=== PATIENT | female | born 1985 | race American Indian/Alaskan Native ===

== ENCOUNTER 2019-03-17 17:03 | Emergency (ER) | payer SELFPAY ==
--- NOTE | 2019-03-17 20:11 | XRay Report ---
RIGHT ANKLE 3 VIEWS INDICATION / CLINICAL INFORMATION: fall with pain. COMPARISON: None available. FINDINGS: No fracture, dislocation or soft tissue swelling is seen within the right ankle. The ankle mortise ap pears intact. Signer Name: Zhang Moreno MD Signed: 03/17/2019 8:07 PM Workstation Name: [id number]
--- NOTE | 2019-03-17 20:12 | XRay Report ---
RIGHT KNEE 3 VIEWS INDICATION / CLINICAL INFORMATION: pain and fall. COMPARISON: None available. FINDINGS: No fracture, dislocation or right knee effusion is present. The joint spaces are well preserved on th sherman nonweightbearing views. Signer Name: Zhang Moreno MD Signed: 03/17/2019 8:07 PM Workstation Name: [id number]
--- NOTE | 2019-03-17 21:53 | Emergency Department Report ---
ED Lower Extremity HPI - General Chief Complaint: Extremity Injury, Lower Stated Complaint: RT LEG/LFT ANKLE PAIN Time Seen by Provider: 03/17/19 21:18 Source: patient Mode of arrival: Ambulatory Limitations: No Limitations - History of Present Illness Initial Comments: 33-year-old female presents to ED with right ankle pain. Patient states she twisted her ankle. States when she ambulates, pain radiates from the right ankle up the lateral side of her right lower leg. MD Complaint: ankle injury -: days(s) (1) Injury: Ankle: Right Severity: moderate Improves With: immobilization Worsens With: weight bearing, palpation Context: other (twisted) Associated Symptoms: able to partially bear weight. denies: numbness, tingling - Related Data Previous Rx's Medication Instructions Recorded Last Taken Type Naproxen [Naprosyn] 500 mg PO BID #20 tablet 03/17/19 Unknown Rx Allergies Allergy/AdvReac Type Severity Reaction Status Date / Time No Known Allergies Allergy Verified 03/17/19 18:32 ED Review of Systems ROS: Stated complaint: RT LEG/LFT ANKLE PAIN Other details as noted in HPI Comment: All other systems reviewed and negative Musculoskeletal: as per HPI Neurological: denies: weakness, numbness, paresthesias ED Past Medical Hx - Past Medical History Previous Medical History?: No - Surgical History Past Surgical History?: No - Social History Smoking Status: Current Every Day Smoker Substance Use Type: Alcohol - Medications Home Medications: Home Medications Medication Instructions Recorded Confirmed Last Taken Type Naproxen [Naprosyn] 500 mg PO BID #20 tablet 03/17/19 Unknown Rx ED Physical Exam - General Limitations: No Limitations General appearance: alert, in no apparent distress - Head Head exam: Present: atraumatic, normocephalic - Eye Eye exam: Present: normal appearance - ENT ENT exam: Present: mucous membranes moist - Neck Neck exam: Present: normal inspection - Respiratory Respiratory exam: Present: normal lung sounds bilaterally. Absent: respiratory distress - Cardiovascular Cardiovascular Exam: Present: regular rate, normal rhythm - GI/Abdominal GI/Abdominal exam: Absent: distended - Extremities Exam Extremities exam: Present: other (tenderness to lateral right ankle w/ mild swelling present; no deformity present) - Neurological Exam Neurological exam: Present: alert, oriented X3. Absent: motor sensory deficit - Psychiatric Psychiatric exam: Present: normal affect, normal mood - Skin Skin exam: Present: warm, dry, intact, normal color. Absent: rash ED Course Vital Signs 03/17/19 03/17/19 18:32 22:42 Temperature 98.5 F Pulse Rate 79 76 Respiratory 18 18 Rate Blood Pressure 102/62 104/62 [Right] O2 Sat by Pulse 99 98 Oximetry ED Lower Extremity MDM - Radiology Data Radiology results: report reviewed, image reviewed - Differential Diagnosis fracture, sprain Critical care attestation.: If time is entered above; I have spent that time in minutes in the direct care of this critically ill patient, excluding procedure time. ED Disposition Clinical Impression: Right ankle sprain Disposition: DC-01 TO HOME OR SELFCARE Is pt being admited?: No Condition: Stable Instructions: Ankle Sprain (ED) Prescriptions: Naproxen [Naprosyn] 500 mg PO BID #20 tablet Referrals: LORENZO ONOFRE MD [Staff Physician] - 3-5 Days Forms: Work/School Release Form(ED) Time of Disposition: 22:07
[2019-03-17 22:43] VITALS: BP 104/62
== END 2019-03-17 22:42 | disposition home or self-care (01) ==
LOC: ED 17:03
DX: S93.401A Sprain of unspecified ligament of right ankle, initial encounter (principal); X58.XXXA Exposure to other specified factors, initial encounter; Y93.9 Activity, unspecified; Y92.89 Other specified places as the place of occurrence of the external cause; Y99.8 Other external cause status